=== PATIENT | female | born 1985 | race African-American/Black ===

== ENCOUNTER 2017-03-12 21:49 | Observation (INO) | payer OTHER ==
[~2017-03-12] VITALS: Ht 167.6 cm; Wt 108.4 kg
[2017-03-12] MEDS ORDERED: DOCU-138 PO (23:38)
[2017-03-12] MEDS ORDERED: IRON-1 PO (23:38)
[2017-03-12] MEDS ORDERED: PNV1TABL76 MT (23:38)
== END 2017-03-13 00:01 | disposition home or self-care (01) ==
LOC: L&D 21:49
PROVIDERS: ADMIT Specialist; ATTEND Specialist
DX: O42.913 Preterm premature rupture of membranes, unspecified as to length of time between rupture and onset of labor, third trimester (principal); O26.893 Other specified pregnancy related conditions, third trimester; R10.30 Lower abdominal pain, unspecified; Z3A.39 39 weeks gestation of pregnancy
CPT/HCPCS: 76815; 76818; G0378